=== PATIENT | male | born 1980 | race Caucasian/White ===

== ENCOUNTER 2021-01-28 07:56 | Day surgery (SDC) | payer OTHER ==
[2021-01-25 17:55] VITALS: BMI 27.1
[2021-01-28] MEDS ORDERED: KETAMINE HCL 500 MG/10 ML VIAL ONE (09:31)
[2021-01-28 10:15] VITALS: TEMP 98
[2021-01-28 11:23] VITALS: BP 125/75; PULSE 77
== END 2021-01-28 11:05 | disposition home or self-care (01) ==
LOC: FECT 07:56
PROVIDERS: ATTEND Psychiatry & Neurology Psychiatry
PROC: GZB4ZZZ Other Electroconvulsive Therapy (ICD-10-PCS; principal; 2021-01-28 09:30)
DX: F33.9 Major depressive disorder, recurrent, unspecified (principal)
CPT/HCPCS: 90870; 94760; C9803; U0003; U0005

== ENCOUNTER 2021-01-31 06:36 | Day surgery (SDC) | payer OTHER ==
[2021-01-30 12:45] VITALS: BMI 27.1
[2021-01-31] MEDS ORDERED: KETAMINE HCL 500 MG/10 ML VIAL ONE (08:00)
[2021-01-31] MEDS ORDERED: PROPOFOL 20 ML ONE ×2 (08:08)
[2021-01-31] MEDS: MIDAZOLAM HCL 2 MG/2 ML SINGLE DOSE VIAL ONE ×2 (08:30→08:32)
[2021-01-31 08:52] VITALS: TEMP 98.9
[2021-01-31 09:12] VITALS: BP 139/104; PULSE 82
== END 2021-01-31 10:15 | disposition home or self-care (01) ==
LOC: FECT 06:36
PROVIDERS: ATTEND Psychiatry & Neurology Psychiatry
PROC: GZB4ZZZ Other Electroconvulsive Therapy (ICD-10-PCS; principal; 2021-01-31 08:30)
DX: F32.9 Major depressive disorder, single episode, unspecified (principal)
CPT/HCPCS: 90870; 94760

== ENCOUNTER 2021-02-01 06:15 | Day surgery (SDC) | payer OTHER ==
[2021-01-31 12:12] VITALS: BMI 27.1
[2021-02-01] MEDS ORDERED: MIDAZOLAM HCL 2 MG/2 ML SINGLE DOSE VIAL ONE (07:26)
[2021-02-01] MEDS ORDERED: KETAMINE HCL 500 MG/10 ML VIAL ONE (07:26)
[2021-02-01 08:42] VITALS: PULSE 81; TEMP 98
[2021-02-01 09:00] VITALS: BP 120/68
== END 2021-02-01 09:00 | disposition home or self-care (01) ==
LOC: FECT 06:15
PROVIDERS: ATTEND Psychiatry & Neurology Psychiatry
PROC: GZB4ZZZ Other Electroconvulsive Therapy (ICD-10-PCS; principal; 2021-02-01 08:00)
DX: F32.9 Major depressive disorder, single episode, unspecified (principal)
CPT/HCPCS: 90870; 94760; C9803; U0003; U0005

== ENCOUNTER 2021-02-04 06:34 | Day surgery (SDC) | payer OTHER ==
[2021-02-01 11:43] VITALS: BMI 27.1
[2021-02-04] MEDS ORDERED: KETAMINE HCL 500 MG/10 ML VIAL ONE (08:38)
[2021-02-04] MEDS ORDERED: MIDAZOLAM HCL 2 MG/2 ML SINGLE DOSE VIAL ONE (08:47)
[2021-02-04 09:15] VITALS: TEMP 98
[2021-02-04 10:14] VITALS: BP 136/88; PULSE 91
== END 2021-02-04 10:00 | disposition home or self-care (01) ==
LOC: FECT 06:34
PROVIDERS: ATTEND Psychiatry & Neurology Psychiatry
PROC: GZB4ZZZ Other Electroconvulsive Therapy (ICD-10-PCS; principal; 2021-02-04 08:30)
DX: F32.9 Major depressive disorder, single episode, unspecified (principal)
CPT/HCPCS: 90870; 94760; C9803; U0003; U0005